=== PATIENT | female | born 1965 | race Caucasian/White ===

== ENCOUNTER 2021-08-20 20:23 | Emergency (ER) | payer MEDICAID ==
[~2021-08-20] VITALS: Ht 160 cm; Wt 74.8 kg
[2021-08-20 20:29] VITALS: BP 133/78
--- NOTE | 2021-08-20 20:38 | NUR ---
PT W/C ASSISTED TO ER BED 2
--- NOTE | 2021-08-20 20:45 | NUR ---
56 Y/O FEMALE BIB FAMILY, C/O DIZZINESS X2WKS. PATIENT PRESENTS TO ED WITH STEADY GAIT, NO OBVIOUS TRAUMA. PT STATES SHE HAS INTERMITENT DIZZINESS. DENIES N/V/D; SKIN IS PINK/WARM/DRY; AAOX4 WITH EVEN AND STEADY GAIT; LUNGS CLEAR BL; HR EVEN AND REGULAR; PT DENIES ANY FEVER, CP, SOB, OR COUGH AT THIS TIME; PATIENT STATES PAIN OF 0/10 AT THIS TIME; VSS; PATIENT POSITIONED FOR COMFORT; HOB ELEVATED; BEDRAILS UP X1; BED DOWN. ER MD MADE AWARE OF PT STATUS. FAMILY AT BEDSIDE. SHE HAS RECENTLY BEEN DX W/ H.PYLORI BUT HAS NOT STARTED HER RX OF TODAY. HX: DM, ARTHRITIS, H.PYLORI
--- NOTE | 2021-08-20 21:02 | NUR ---
PASTER OPERATOR AT BEDSIDE
[2021-08-20 21:10] LABS: BASOPHILS # (AUTO) 0.1 K/uL (0.00-0.22); EOSINOPHILS # (AUTO) 0.2 K/uL (0-0.4); EOSINOPHILS % (AUTO) 2.5 % (0.0-4.0); HEMATOCRIT 36.7 % (36-48); HEMOGLOBIN 12.5 g/dL (12.0-16.0); LYMPHOCYTES # (AUTO) 3.5 K/uL (2.5-16.5); LYMPHOCYTES % (AUTO) 53.4 % (20.5-51.1); MEAN CORPUSCULAR HEMOGLOBIN 30 pg (27-31); MEAN CORPUSCULAR HGB CONC 34 g/dL (33-37); MEAN CORPUSCULAR VOLUME 88.6 fL (80-94); MONOCYTES # (AUTO) 0.5 K/uL (0.8-1.0); MONOCYTES % (AUTO) 7.8 % (1.7-9.3); NEUTROPHILS # (AUTO) 2.3 K/uL (1.8-7.7); NEUTROPHILS % (AUTO) 35.3 % (42.2-75.2); PLATELET COUNT (AUTO) 254 K/uL (140-450); RED BLOOD CELL COUNT(AUTO) 4.14 MIL/uL (4.20-5.40); RED CELL DISTRIBUTION WIDTH 13.4 % (11.6-13.7); WHITE BLOOD COUNT (AUTO) 6.6 K/uL (4.8-10.8)
--- NOTE | 2021-08-20 21:10 | NUR ---
XRAY AT BEDSIDE
[2021-08-20 21:40] LABS: ALBUMIN 3.7 g/dL (3.4-5.0); ANION GAP 9.4 (8-16); ASPARTATE AMINOTRANSFERASE 12 U/L (15-37); CARBON DIOXIDE 28.5 mmol/L (21-32); CHLORIDE 103 mmol/L (98-107); CREATININE 0.8 mg/dL (0.6-1.3); GFR ARICAN-AMERICAN 96 mL/min (>90); GLUCOSE 190 mg/dL (74-106); POTASSIUM 3.9 mmol/L (3.5-5.1); SODIUM SERUM 137 mmol/L (136-145); TOTAL BILIRUBIN 0.2 mg/dL (0.0-1.0); UREA NITROGEN, BLOOD 14 mg/dL (7-18)
--- NOTE | 2021-08-20 22:09 | NUR ---
Dr. Isabel examining patient.
[2021-08-20] MEDS ORDERED: ACETAMINOPHEN 325 MG TAB PO ONE (22:15)
[2021-08-20] MEDS ORDERED: NACL 0.9% 1,000 ML IV ONE (22:15)
[2021-08-20] MEDS ORDERED: PANTOPRAZOLE 40 MG INJ VIAL IVP ONE (22:15)
[2021-08-20] MEDS ORDERED: MECLIZINE 25 MG TAB PO ONE (22:15)
[2021-08-20] MEDS ORDERED: ONDANSETRON 4 MG/2 ML VIAL IVP ONE (22:15)
--- NOTE | 2021-08-20 23:22 | NUR ---
PT RETURNED FROM CT
[2021-08-21] MEDS ORDERED: ONDA-188 SL (01:10)
[2021-08-21] MEDS ORDERED: MECL-303 PO (01:10)
--- NOTE | 2021-08-21 01:30 | NUR ---
DR TAVERA AT BEDSIDE DISCUSSING CT RESULTS WITH PT.
[2021-08-21 02:00] VITALS: BP 109/62
--- NOTE | 2021-08-21 02:01 | NUR ---
Patient discharged with v/s stable. Written and verbal after care instructions given and explained. Patient alert, oriented and verbalized understanding of instructions. Ambulatory with steady gait. All questions addressed prior to discharge. ID band removed. Patient advised to follow up with PMD. Rx of MECLIZINE AND ONDANSETRON given. Patient educated on indication of medication including possible reaction and side effects. Opportunity to ask questions provided and answered. VSS, A/OX4, AMBULATORY, UNLABORED BREATHING, AND CALM DEMEANOR.
== END 2021-08-21 02:00 | disposition home or self-care (01) ==
LOC: MED 20:23
DX: H81.10 Benign paroxysmal vertigo, unspecified ear (principal); E11.9 Type 2 diabetes mellitus without complications; M19.90 Unspecified osteoarthritis, unspecified site; Z79.899 Other long term (current) drug therapy
CPT/HCPCS: 36415; 70450; 70496; 70498; 71045; 80053; 84484; 85025; 93005; 96361; 96374; 96375; 99285; C9113; J2405; J7030; J8597; Q9967